=== PATIENT | male | born 1985 | race African-American/Black ===

== ENCOUNTER 2024-01-18 12:35 | Emergency (ER) | payer SELFPAY ==
[~2024-01-18] VITALS: Ht 185.4 cm; Wt 63.5 kg
[2024-01-18 12:39] VITALS: BP 137/71; PULSE 55; RESP 16; TEMP 97.8; O2SAT 100
== END 2024-01-18 17:10 | disposition left against medical advice (07) ==
LOC: ER 13:18
DX: Z53.21 Procedure and treatment not carried out due to patient leaving prior to being seen by health care provider (principal)